=== PATIENT | female | born 1980 | race Two or more races ===

== ENCOUNTER 2025-10-18 16:07 | Inpatient (IN) | payer MEDICAID ==
[~2025-10-18] VITALS: Ht 157.5 cm; Wt 79.4 kg
[2025-10-18] MEDS ORDERED: FAMOTIDINE/PF INJ 20 MG/2 ML VIAL IV ONE (16:42)
[2025-10-18] MEDS ORDERED: ONDANSETRON HCL/PF 4 MG/2 ML VIAL ONE (16:42)
[2025-10-18] MEDS: IV NS 0.9% 1,000 ML BAG IV ONE (17:05)
[2025-10-18] MEDS: ONDANSETRON HCL/PF 4 MG/2 ML VIAL IVP ONE (17:06)
[2025-10-18] MEDS: FAMOTIDINE/PF INJ 20 MG/2 ML VIAL IV ONE (17:06)
[2025-10-18 17:10] LABS: APPEARANCE,URINE CLEAR (CLEAR); BLOOD, URINE 3+ Ery/uL (NEGATIVE); LEUKOCYTE ESTERASE ,URINE NEGATIVE (NEGATIVE); NITRITE, URINE NEGATIVE (NEGATIVE); UGLUCOSE NEGATIVE (NEGATIVE)
[2025-10-18 17:11] LABS: PREGNANCY TEST URINE QUAL NEGATIVE (NEGATIVE)
[2025-10-18 17:12] LABS: PLATELET COUNT (AUTO) 491 K/uL (150-450); RED BLOOD CELL COUNT(AUTO) 4.33 MIL/uL (4.0-5.2); RED CELL DISTRIBUTION WIDTH 19.7 % (11.5-15.0); WHITE BLOOD COUNT (AUTO) 19.5 K/uL (4.3-11.0)
[2025-10-18 17:13] LABS: CALCIUM, SERUM 8.9 mg/dL (8.5-10.1); CREATININE 0.6 mg/dL (0.6-1.3); SODIUM SERUM 139.0 mmol/L (136-145); UREA NITROGEN, BLOOD 5.0 mg/dL (7-18)
[2025-10-18 17:20] LABS: SQUAMOUS EPITHELIAL CELL,UR Many /HPF (None Seen)
[2025-10-18 17:20] LABS: ASPARTATE AMINOTRANSFERASE 10.0 U/L (15-37); ASPARTATE AMINOTRANSFERASE 11.0 U/L (15-37); TOTAL PROTEIN, SERUM 8.5 g/dL (6.4-8.2)
[2025-10-18 17:21] LABS: ADD URINE CULTURE YES
[2025-10-18] MEDS ORDERED: PIPERACI/TAZO 3.375GM/D5W 50ML PB IV ONE (17:24)
[2025-10-18] MEDS: PIPERACILLIN /TAZOBACTAM 3.375 G in IV D5W 50 ML IV ONE (17:35)
[2025-10-18 18:11] LABS: EOSINOPHILS % (MANUAL) 1 % (0-4); LYMPHOCYTES % (MANUAL) 12 % (16-48); MONOCYTES % (MANUAL) 5 % (0-11.0); NEUTROPHILS % (MANUAL) 82 (42-76); PLATELET ESTIMATE ADEQUATE
[2025-10-18 18:48] LABS: PHOSPHORUS 2.9 mg/dL (2.5-4.9)
[2025-10-18] MEDS ORDERED: ACETAMINOPHEN 325 MG TABLET PO PRN (21:30)
[2025-10-18] MEDS ORDERED: SOD FERRIC GLUC 125 MG in IV NS 0.9% 100 ML IV SCH (21:30)
[2025-10-18] MEDS ORDERED: MORPHINE SULFATE INJ 4 MG/ML DISP.SYRIN IV PRN (21:30)
[2025-10-18] MEDS ORDERED: ONDANSETRON HCL/PF 4 MG/2 ML VIAL IVP PRN (21:30)
[2025-10-18 22:00] VITALS: BP 115/76; TEMP 98.6; O2SAT 100
[2025-10-18 22:38] LABS: IRON, SERUM 9 ug/dl (50-175)
[2025-10-19] MEDS ORDERED: PIPERACI/TAZO 3.375GM/D5W 50ML PB IV ONE ×2 (00:55→06:48)
[2025-10-19] MEDS: ZOSYN IVPB 3.375 G in IV D5W 50ml IV SCH (01:10)
[2025-10-19] MEDS: POTASSIUM CL. PREMIX PERIPHER. 50 ML IV SCH (01:14)
[2025-10-19] MEDS: IV D5/0.45 NACL 1,000 ML IV PRN (01:15)
[2025-10-19 04:05] VITALS: BP 118/75; TEMP 98.4
[2025-10-19 04:20] VITALS: BP 117/70; TEMP 98.9
[2025-10-19 05:20] VITALS: BP 113/71; TEMP 98.9
[2025-10-19 06:41] LABS: PLATELET COUNT (AUTO) 450 K/uL (150-450); RED BLOOD CELL COUNT(AUTO) 4.36 MIL/uL (4.0-5.2); RED CELL DISTRIBUTION WIDTH 26.3 % (11.5-15.0); WHITE BLOOD COUNT (AUTO) 19.3 K/uL (4.3-11.0)
[2025-10-19 06:42] VITALS: BP 118/78; TEMP 98.8
[2025-10-19 06:43] LABS: CALCIUM, SERUM 8.5 mg/dL (8.5-10.1); CREATININE 0.6 mg/dL (0.6-1.3); PHOSPHORUS 2.9 mg/dL (2.5-4.9); SODIUM SERUM 139.0 mmol/L (136-145); UREA NITROGEN, BLOOD 6.0 mg/dL (7-18)
[2025-10-19 08:13] LABS: LDL 46.0 mg/dL (0-99)
[2025-10-19 08:17] LABS: ASPARTATE AMINOTRANSFERASE 14.0 U/L (15-37); TOTAL PROTEIN, SERUM 8.0 g/dL (6.4-8.2)
[2025-10-19] MEDS: PANTOPRAZOLE 40 MG VIAL IV SCH (09:22)
[2025-10-19] MEDS: SOD FERRIC GLUC 125 MG in IV NS 0.9% 100 ML IV SCH (09:33)
[2025-10-19] MEDS ORDERED: INDOCYANINE GREEN 25 MG/VIAL VIAL IJ ONE (10:24)
[2025-10-19] MEDS ORDERED: LIDOCAINE 1%-EPI 1:100,000 20 ML VIAL ONE (10:25)
[2025-10-19] MEDS ORDERED: BUPIVACAINE 0.5 % PF 150 MG/30 ML VIAL ONE (10:25)
[2025-10-19] MEDS ORDERED: ANESTHESIA TRAY IN PYXIS 1 EA TRAY MC ONE (10:25)
[2025-10-19] MEDS ORDERED: MIDAZOLAM HCL 2 MG/2ML VIAL ONE (10:32)
[2025-10-19] MEDS ORDERED: FENTANYL PF 100MCG/2ML AMPUL ONE (10:32)
[2025-10-19] MEDS ORDERED: FAMOTIDINE/PF INJ 20 MG/2 ML VIAL IV ONE (10:33)
[2025-10-19] MEDS ORDERED: ROCURONIUM BROMIDE 50 MG/5 ML ONE (10:33)
[2025-10-19] MEDS ORDERED: SUCCINYLCHOLINE CHLORIDE 20 MG/ML VIAL ONE (10:33)
[2025-10-19] MEDS ORDERED: SUGAMMADEX SODIUM 200 MG/2 ML VIAL IV ONE (12:41)
[2025-10-19] MEDS: PIPERACILLIN /TAZOBACTAM 3.375 G in IV D5W 50 ML IV SCH (13:35)
[2025-10-19] MEDS ORDERED: SOD FERRIC GLUC 125 MG in IV NS 0.9% 100 ML IV SCH (14:00)
[2025-10-19 20:00] VITALS: BP 105/73; TEMP 98.4; O2SAT 96
[2025-10-20 05:47] VITALS: BP_SYST 131; BP_SYST 96; BP_DIAS 61; BP_DIAS 87; TEMP 97.7; O2SAT 96
[2025-10-20 07:05] LABS: PLATELET COUNT (AUTO) 450 K/uL (150-450); RED BLOOD CELL COUNT(AUTO) 4.21 MIL/uL (4.0-5.2); RED CELL DISTRIBUTION WIDTH 28.6 % (11.5-15.0); WHITE BLOOD COUNT (AUTO) 19.8 K/uL (4.3-11.0)
[2025-10-20 07:15] LABS: ASPARTATE AMINOTRANSFERASE 48.0 U/L (15-37); CALCIUM, SERUM 8.3 mg/dL (8.5-10.1); CREATININE 0.5 mg/dL (0.6-1.3); PHOSPHORUS 2.9 mg/dL (2.5-4.9); SODIUM SERUM 139.0 mmol/L (136-145); TOTAL PROTEIN, SERUM 7.1 g/dL (6.4-8.2); UREA NITROGEN, BLOOD 5.0 mg/dL (7-18)
[2025-10-20 08:00] VITALS: BP 111/67; TEMP 98.2; O2SAT 97
[2025-10-20] MEDS: POTASSIUM CHLORIDE 20 MEQ TAB.PRT.SR PO ONE (11:59)
[2025-10-20 15:58] VITALS: BP 119/76; TEMP 99.5; O2SAT 96
[2025-10-20 20:00] VITALS: BP 126/76; TEMP 97.7; O2SAT 100
[2025-10-21 06:29] LABS: PLATELET COUNT (AUTO) 489 K/uL (150-450); RED BLOOD CELL COUNT(AUTO) 4.09 MIL/uL (4.0-5.2); RED CELL DISTRIBUTION WIDTH 28.7 % (11.5-15.0); WHITE BLOOD COUNT (AUTO) 11.7 K/uL (4.3-11.0)
[2025-10-21 07:03] LABS: ASPARTATE AMINOTRANSFERASE 31.0 U/L (15-37); CALCIUM, SERUM 7.9 mg/dL (8.5-10.1); CREATININE 0.7 mg/dL (0.6-1.3); SODIUM SERUM 142.0 mmol/L (136-145); TOTAL PROTEIN, SERUM 6.8 g/dL (6.4-8.2); UREA NITROGEN, BLOOD 7.0 mg/dL (7-18)
[2025-10-21 10:48] VITALS: BP 114/78; TEMP 98.2; O2SAT 98
[2025-10-21] MEDS: LEVOTHYROXINE SODIUM 88 MCG TABLET PO SCH (13:13)
[2025-10-21] MEDS ORDERED: AMOX-427 PO (13:36)
[2025-10-21] MEDS ORDERED: LEVO88TA2 PO (13:36)
== END 2025-10-21 16:54 | disposition home or self-care (01) | DRG 263 ==
LOC: ER 16:15 → TELE 20:54 → MED 22:02
PROVIDERS: ADMIT Nurse Practitioner Family; ATTEND Nurse Practitioner Acute Care
PROC: 30233N1 Transfusion of Nonautologous Red Blood Cells into Peripheral Vein, Percutaneous Approach (ICD-10-PCS; principal; 2025-10-18)
PROC: 0FT44ZZ Resection of Gallbladder, Percutaneous Endoscopic Approach (ICD-10-PCS; 2025-10-19)
PROC: 0FD04ZX Extraction of Liver, Percutaneous Endoscopic Approach, Diagnostic (ICD-10-PCS; 2025-10-19)
DX: K80.12 Calculus of gallbladder with acute and chronic cholecystitis without obstruction (principal); D62 Acute posthemorrhagic anemia; E83.41 Hypermagnesemia; E83.51 Hypocalcemia; K83.8 Other specified diseases of biliary tract; D50.9 Iron deficiency anemia, unspecified; E66.9 Obesity, unspecified; E03.9 Hypothyroidism, unspecified; E87.6 Hypokalemia; Z68.32 Body mass index [BMI] 32.0-32.9, adult; Z79.890 Hormone replacement therapy
CPT/HCPCS: 36415; 71045-TC; 76705-TC; 80048-TC; 80053-TC; 80061-TC; 80076-TC; 81001; 82728-TC; 83540-TC; 83690-TC; 83735-TC; 84100-TC; 84439-TC; 84443-TC; 84703-TC; 85025-TC; 85027-TC; 86850-TC; 87086-TC; 88304-TC; 88307-TC; 88313-TC; A4223; A6209; G0378; J0330; J0690; J1100; J1308; J2250; J2405; J2470; J2543; J2704; J2765; J2916; J3010; J3480; J3490; J7030; J7040; J7050; J7060; P9016; Q9968